=== PATIENT | female | born 1955 | race Hispanic/Latino ===

== ENCOUNTER 2024-03-07 15:55 | Outpatient (RCR) | payer MEDICARE ==
[~2024-03-07 15:55] MED LIST: ASPIRIN81 MG PO; ATORVASTATIN CA20 MG PO; CELEBREX200 MG PO; DIOVAN160 MG PO; LEVOTHYROXINE75 MCG PO; METFORMIN HCL500 MG PO; OMEPRAZOLE40 MG PO; PREDNISONE20 MG PO; PROVENTIL HFA6.7 GM INH
== END 2024-03-19 ==
LOC: PT 15:55
PROVIDERS: ATTEND Physician Assistant
DX: Z47.1 Aftercare following joint replacement surgery (principal); Z96.652 Presence of left artificial knee joint; M25.562 Pain in left knee; M62.81 Muscle weakness (generalized)